=== PATIENT | male | born 1935 | race African-American/Black ===

== ENCOUNTER 2018-07-05 09:36 | Outpatient (CLI) | payer MEDICARE ==
[2018-07-05 10:08] LABS: Basophils # (Auto) 0.1 K/mm3 (0.0-0.1); Basophils % (Auto) 0.9 % (0.0-1.8); Eosinophils % (Auto) 0.2 % (0.0-4.3); Hematocrit 37.8 % (35.5-45.6); Hemoglobin 12.7 gm/dl (11.8-15.2); Lymphocytes # (Auto) 1.6 K/mm3 (1.2-5.4); Lymphocytes % (Auto) 25.3 % (13.4-35.0); Mean Corpuscular HGB Conc 34 % (32-34); Mean Corpuscular Volume 95 fl (84-94); Monocytes # (Auto) 0.4 K/mm3 (0.0-0.8); Monocytes % (Auto) 6.6 % (0.0-7.3); Platelet Count 208 K/mm3 (140-440); Red Blood Count 3.98 M/mm3 (3.65-5.03); Red Cell Distribution Width 13.8 % (13.2-15.2)
[2018-07-05 10:33] LABS: Alanine Aminotransferase 17 units/L (7-56); Albumin 4.5 g/dL (3.9-5); BUN/Creatinine Ratio 23; Blood Urea Nitrogen 18 mg/dL (9-20); Calcium 9.5 mg/dL (8.4-10.2); Chol/HDL Ratio 2.36 %; HDL Cholesterol 61 mg/dL (40-59); Hemolysis Index 40; LDL Cholesterol,Direct 78 mg/dL (50-130)
--- NOTE | 2018-07-05 10:37 | XRay Report ---
ROUTINE CHEST, TWO VIEWS: HISTORY: Acute bronchitis. The trachea, heart, mediastinal contour, lung fong and bony thorax are unremarkable. IMPRESSION: Unremarkable chest x-ray.
== END 2018-07-05 09:37 | disposition home or self-care (01) ==
LOC: XRAY 09:36
PROVIDERS: ATTEND Internal Medicine
DX: J20.9 Acute bronchitis, unspecified (principal); J30.89 Other allergic rhinitis; J45.20 Mild intermittent asthma, uncomplicated; I10 Essential (primary) hypertension; E78.00 Pure hypercholesterolemia, unspecified; E11.9 Type 2 diabetes mellitus without complications
CPT/HCPCS: 36415; 71046; 80053; 80061; 82785; 84436; 84443; 85025

== ENCOUNTER 2021-04-14 20:54 | Observation (INO) | payer MEDICARE ==
--- NOTE | 2021-04-15 00:33 | Event Note ---
ED Screening Note Date of service: 04/15/21 Time: 00:31 ED Screening Note: Per family, patient is an 85-year-old Welsh male with a history of hypertension and [id number] diabetes who presents to the ED for evaluation after he developed acute onset hypotension at home followed by syncope and fall, and hit his head against furniture in the kitchen about 2 hours prior prior to arrival in the ED. Family states that the patient did not hit his head against the concrete on the floor but against furniture in the kitchen with no loss of consciousness. Family states that the patient took his first COVID-19 vaccination injection over 12 hours ago. Family states that the patient has not had any chest pain, shortness of breath, dizziness, change in vision, nausea and vomiting, chills, fever, headache, numbness and tingling or weakness of upper and lower extremities bilaterally. This initial assessment/diagnostic orders/clinical plan/treatment(s) is/are subject to change based on patients health status, clinical progression and re- assessment by fellow clinical providers in the ED. Further treatment and workup at subsequent clinical providers discretion. Patient/guardian urged not to elope from the ED as their condition may be serious if not clinically assessed and managed. Initial orders include: CBC, CMP, EKG, chest x-ray, troponin, CT head without contrast
--- NOTE | 2021-04-15 01:17 | Cat Scan Report ---
CT HEAD WITHOUT CONTRAST INDICATION / CLINICAL INFORMATION: Syncope and fall. TECHNIQUE: All CT scans at this location are performed using CT dose reduction for ALARA by means of automated e xposure control. COMPARISON: None available. FINDINGS: No acute intracranial hemorrhage. Ventricles are normal in size without midline shift or mass effect. Basal ganglia calcifications are seen. Diffuse ethmoid sinus disease. Corpus callosum appear normal. ADDITIONAL FINDINGS: None. IMPRESSION: 1. Extensive calcifications in the basal ganglia bilaterally. No acute intracranial hemorrhage is def initely seen. If there is concern for ischemia MRI follow-up could be performed. Signer Name: Marcin Altman MD Signed: 04/15/2021 1:13 AM Workstation Name: [id number]
--- NOTE | 2021-04-15 01:26 | XRay Report ---
CHEST 1 VIEW 04/15/2021 12:18 AM INDICATION / CLINICAL INFORMATION: low blood pressure, syncope. COMPARISON: None available. FINDINGS: SUPPORT DEVICES: None. HEART / MEDIASTINUM: No significant abnormality. LUNGS / PLEURA: No significant pulmonary or pleural abnormality. No pneumothorax. ADDITIONAL FINDINGS: Minimal elevation left hemidiaphragm IMPRESSION: 1. No acute findings. Signer Name: Marcin Altman MD Signed: 04/15/2021 1:21 AM Workstation Name: [email or web address]
[2021-04-15 01:49] LABS: Basophils % (Auto) 0.5 % (0.0-1.8); Eosinophils # (Auto) 0.1 K/mm3 (0.0-0.4); Eosinophils % (Auto) 1.3 % (0.0-4.3); Hematocrit 33.4 % (35.5-45.6); Lymphocytes # (Auto) 1.6 K/mm3 (1.2-5.4); Lymphocytes % (Auto) 21.3 % (13.4-35.0); Mean Corpuscular HGB Conc 33 % (32-34); Mean Corpuscular Volume 98 fl (84-94); Monocytes # (Auto) 0.7 K/mm3 (0.0-0.8); Monocytes % (Auto) 9.7 % (0.0-7.3); Platelet Count 188 K/mm3 (140-440); Red Blood Count 3.42 M/mm3 (3.65-5.03); Red Cell Distribution Width 13.8 % (13.2-15.2)
[2021-04-15 01:58] LABS: Alanine Aminotransferase 9 units/L (7-56); Albumin 4.4 g/dL (3.9-5); BUN/Creatinine Ratio 20; Blood Urea Nitrogen 32 mg/dL (9-20); Calcium 9.3 mg/dL (8.4-10.2); Hemolysis Index 4
[2021-04-15] MEDS ORDERED: LACTATED RINGERS 1,000 ML IV ONE (03:02)
--- NOTE | 2021-04-15 03:03 | Emergency Department Report ---
ED General Adult HPI - General Chief complaint: Weakness Stated complaint: he fell and is weak and his blood pressure is low Time Seen by Provider: 04/15/21 01:12 Source: patient, family, RN notes reviewed Mode of arrival: Ambulatory Limitations: Language Barrier - History of Present Illness Initial comments: The patient was evaluated in the emergency department for symptoms described in the history of present illness. He/she was evaluated in the context of the global COVID-19 pandemic, which necessitated consideration that the patient might be at risk for infection with the virus that causes COVID-19. Institutional protocols and algorithms that pertain to the evaluation of patients at risk for COVID-19 are in a state of rapid change based on information released by regulatory bodies including the CDC and federal and state organizations. These policies and algorithms were followed during the patient's care in the emergency department. Please note that these policies, procedures and recommendations changed on a rapid basis. The patient is an 85-year-old gentleman. He is accompanied by his son, Mr. Roxie Langford; [phone]. The patient's son indicates that the patient would like the son to translate. The patient has a history of hypertension, BPH, and diabetes. The patient's son states that the patient felt weak recently, and fell. He reports that the patient's legs gave out on him, but he did not hit his head. He reports generalized weakness. The patient's son denies headache, neck pain, chest pain, abdominal pain, shortness of breath, nausea, vomiting or diarrhea. To the best of the son's recollection, the patient has not had any new or different medications started. The patient's son believes that the patient had low blood pressure prior to arrival, as he reports that a prehospital person told him that the blood pressure was low. He does not describe qualitative nature of symptoms except as noted, exacerbatin g factors, relieving factors or aggravating factors. No vomiting, diarrhea, fever, or Covid exposure. -: Sudden Consistency: other Improves with: other Worsens with: other Associated Symptoms: other - Related Data Previous Rx's Medication Instructions Recorded Last Taken Type HYDROcodone/APAP 5-325 [[place] 1 - 2 each PO Q6HR PRN #14 tablet 06/06/16 Unknown Rx 5/325] Sulfamethoxazole/Trimethoprim 1 each PO BID #20 tablet 06/06/16 Unknown Rx [Bactrim DS TAB] Allergies Allergy/AdvReac Type Severity Reaction Status Date / Time No Known Allergies Allergy Verified 04/14/21 23:25 ED Review of Systems ROS: Stated complaint: FELL Other details as noted in HPI Comment: As per fam Constitutional: malaise, weakness Respiratory: denies: cough Cardiovascular: denies: chest pain Gastrointestinal: denies: abdominal pain, hematemesis, melena, hematochezia Genitourinary: denies: dysuria Musculoskeletal: denies: back pain Neurological: weakness Hematological/Lymphatic: denies: easy bleeding ED Past Medical Hx - Past Medical History Additional medical history: eczema - Social History Smoking Status: Never Smoker Substance Use Type: None - Medications Home Medications: Home Medications Medication Instructions Recorded Confirmed Last Taken Type HYDROcodone/APAP 5-325 [[place] 1 - 2 each PO Q6HR PRN #14 tablet 06/06/16 Unknown Rx 5/325] Sulfamethoxazole/Trimethoprim 1 each PO BID #20 tablet 06/06/16 Unknown Rx [Bactrim DS TAB] ED Physical Exam - General Limitations: Language Barrier General appearance: alert, in no apparent distress - Head Head exam: Present: atraumatic, normocephalic - Eye Eye exam: Present: normal appearance, PERRL, EOMI. Absent: nystagmus - ENT ENT exam: Present: normal exam, normal orophraynx, mucous membranes moist, normal external ear exam - Neck Neck exam: Present: normal inspection, full ROM. Absent: tenderness, meningismus - Respiratory Respiratory exam: Present: normal lung sounds bilaterally. Absent: respiratory distress, wheezes, rales, rhonchi, stridor, decreased breath sounds - Cardiovascular Cardiovascular Exam: Present: regular rate, normal rhythm, normal heart sounds. Absent: bradycardia, tachycardia, irregular rhythm, systolic murmur, diastolic murmur, rubs, gallop - GI/Abdominal GI/Abdominal exam: Present: soft. Absent: distended, tenderness, guarding, rebound, rigid, pulsatile mass - Rectal Rectal exam: Present: deferred - Extremities Exam Extremities exam: Present: normal inspection, full ROM, other (2+ pulses noted in the bilateral upper and lower extremities. There is no palpable cord. negative Homans sign. Muscular compartments are soft. The pelvis is stable.). Absent: pedal edema, calf tenderness - Back Exam Back exam: Present: normal inspection. Absent: tenderness, CVA tenderness (R), CVA tenderness (L), paraspinal tenderness, vertebral tenderness - Neurological Exam Neurological exam: Present: alert, other (There is no facial droop. The tongue is midline. EOMI. 5 out of 5 strength in 4 extremities. Sensation intact to light touch in 4 extremities.) - Psychiatric Psychiatric exam: Present: flat affect - Skin Skin exam: Present: warm, dry, intact, normal color. Absent: rash ED Course Vital Signs 04/14/21 04/15/21 04/15/21 23:23 01:34 01:45 Temperature 97.8 F Pulse Rate 86 83 79 Respiratory 19 17 13 Rate Blood Pressure 125/67 O2 Sat by Pulse 99 100 100 Oximetry 04/15/21 04/15/21 04/15/21 02:01 02:31 03:01 Temperature Pulse Rate 78 81 85 Respiratory 12 13 14 Rate Blood Pressure 141/67 133/71 145/73 O2 Sat by Pulse 100 100 100 Oximetry 04/15/21 04/15/21 04/15/21 03:12 03:15 03:31 Temperature 97.1 F L Pulse Rate 78 77 Respiratory 17 14 Rate Blood Pressure 145/73 158/76 O2 Sat by Pulse 100 100 Oximetry ED Medical Decision Making - Lab Data Result diagrams: 04/15/21 00:47 04/15/21 00:47 Vital Signs 04/14/21 23:23 Temperature 97.8 F Pulse Rate 86 Respiratory 19 Rate Blood Pressure 125/67 O2 Sat by Pulse 99 Oximetry Lab Results 04/15/21 04/15/21 Range/Units 00:47 00:47 WBC 7.6 (4.5-11.0) K/mm3 RBC 3.42 L (3.65-5.03) M/mm3 Hgb 11.0 L (11.8-15.2) gm/dl Hct 33.4 L (35.5-45.6) % MCV 98 H (84-94) fl MCH 32 (28-32) pg MCHC 33 (32-34) % RDW 13.8 (13.2-15.2) % Plt Count 188 (140-440) K/mm3 Lymph % (Auto) 21.3 (13.4-35.0) % [place] % (Auto) 9.7 H (0.0-7.3) % Eos % (Auto) 1.3 (0.0-4.3) % Baso % (Auto) 0.5 (0.0-1.8) % Lymph # (Auto) 1.6 (1.2-5.4) K/mm3 [place] # (Auto) 0.7 (0.0-0.8) K/mm3 Eos # (Auto) 0.1 (0.0-0.4) K/mm3 Baso # (Auto) 0.0 (0.0-0.1) K/mm3 Seg Neutrophils % 67.2 (40.0-70.0) % Seg Neutrophils # 5.1 (1.8-7.7) K/mm3 Sodium 128 L (137-145) mmol/L Potassium 5.1 H (3.6-5.0) mmol/L Chloride 93.6 L (98-107) mmol/L Carbon Dioxide 24 (22-30) mmol/L Anion Gap 16 mmol/L BUN 32 H (9-20) mg/dL Creatinine 1.6 H (0.8-1.3) mg/dL Estimated GFR 41 ml/min BUN/Creatinine Ratio 20 % Glucose 150 H (75-100) mg/dL Calcium 9.3 (8.4-10.2) mg/dL Total Bilirubin 0.20 (0.1-1.2) mg/dL AST 14 (5-40) units/L ALT 9 (7-56) units/L Alkaline Phosphatase 54 (35-129) units/L Troponin T < 0.010 (0.00-0.029) ng/mL Total Protein 7.4 (6.3-8.2) g/dL Albumin 4.4 (3.9-5) g/dL Albumin/Globulin Ratio 1.5 % - EKG Data -: EKG Interpreted by Nv EKG shows normal: sinus rhythm Rate: normal - EKG Data When compared to previous EKG there are: previous EKG unavailable 04/15/21 05:02 The EKG is interpreted at 03: 32 Sinus rhythm, rate 77 bpm. Normal axis, normal P wave axis. Right bundle branch block noted. QTC 453 3 ms. Abnormal EKG. Not a STEMI. - Radiology Data Radiology results: pending, report reviewed, image reviewed CT HEAD WITHOUT CONTRAST INDICATION / CLINICAL INFORMATION: Syncope and fall. TECHNIQUE: All CT scans at this location are performed using CT dose reduction for ALARA by means of automated exposure control. COMPARISON: None available. FINDINGS: No acute intracranial hemorrhage. Ventricles are normal in size witho ut midline shift or mass effect. Basal ganglia calcifications are seen. Diffuse ethmoid sinus disease. Corpus callosum appear normal. ADDITIONAL FINDINGS: None. IMPRESSION: 1. Extensive calcifications in the basal ganglia bilaterally. No acute intracranial hemorrhage is definitely seen. If there is concern for ischemia MRI follow-up could be performed. Signer Name: Marcin Altman MD Signed: 04/15/2021 12:13 AM Workstation Name: [id number] CHEST 1 VIEW 04/15/2021 12:18 AM INDICATION / CLINICAL INFORMATION: low blood pressure, syncope. COMPARISON: None available. FINDINGS: SUPPORT DEVICES: None. HEART / MEDIASTINUM: No significant abnormality. LUNGS / PLEURA: No significant pulmonary or pleural abnormality. No pneumothorax. ADDITIONAL FINDINGS: Minimal elevation left hemidiaphragm IMPRESSION: 1. No acute findings. Signer Name: Marcin Altman MD Signed: 04/15/2021 12:21 AM Workstation Name: [id number] - Medical Decision Making Differential diagnosis, including but not limited to: Orthostasis, vagal event, structural cardiac disease, dehydration, renal insufficiency, hyponatremia, hypovolemic hyponatremia, pneumonia, urinary tract infection, thyroid derangement, intracranial lesion/injury Assessment and plan: 85-year-old gentleman, who was afebrile, with reassuring vital signs, moving 4 extremities, and saturating well on room air. He is brought to the hospital by family because of weakness, fall, and report of low blood pressure. Blood pressure acceptable while here in the emergency room. I suspect that the patient is dehydrated, deconditioned, and likely has hypovolemic hyponatremia, as he is found to have hyponatremia, as well as acute renal insufficiency. We have recommended admission to the medical service for urgent echocardiogram to evaluate cardiac contractility, as well as to titrate antihypertensive medications, and administer IV fluids. I discussed this plan of care with the patient's son. He articulated understanding. He was agreeable to the plan of care. Hospital physician, Dr. Irene Arteaga to admit to [facility] Critical care attestation.: If time is entered above; I have spent that time in minutes in the direct care of this critically ill patient, excluding procedure time. ED Disposition Clinical Impression: Hyponatremia, Renal insufficiency, Fall, Debility Disposition: 09 ADMITTED INPATIENT Is pt being admited?: Yes Does the pt Need Aspirin: No Condition: Stable
[2021-04-15] MEDS ORDERED: ACETAMINOPHEN 325 MG TAB PO PRN (03:29)
[2021-04-15] MEDS ORDERED: MAGNESIUM HYDROXIDE (MOM) ORAL LIQD UDC PO PRN (03:29)
[2021-04-15] MEDS ORDERED: ONDANSETRON 4 MG/2 ML INJ IV PRN (03:29)
[2021-04-15] MEDS ORDERED: MORPHINE 2 MG/1 ML INJ IV PRN (03:29)
[2021-04-15] MEDS ORDERED: MORPHINE 4 MG/1 ML INJ IV PRN (03:29)
[2021-04-15] MEDS ORDERED: SODIUM CHLORIDE 0.9% 1000 ML 1,000 ML IV SCH (03:30)
--- NOTE | 2021-04-15 03:48 | History and Physical Report ---
History of Present Illness Date of examination: 04/15/21 Date of admission: 04/15/2021 Chief complaint: Generalized weakness Fall History of present illness: 85-year-old [place]ian male with known history of hypertension, diabetes mellitus and hyperlipidemia brought into the emergency room today accompanied by son with a complaint of fall/syncope and generalized weakness. Patient was evaluated by EMS earlier today and was found to be hypotensive. Son who was by the bedside was able to give most of the history as patient does not speak Greenlandic. Patient was said to have had a fall hitting his head against furniture but there was no head injury and no loss of consciousness. He has been no history of fever or chills, no chest pain or shortness of breath, no nausea vomiting and no diarrhea. No hematuria or dysuria. There has been no sick contacts and no recent travel. No contact with anyone with COVID-19. Patient is fully vaccinated against COVID-19. Upon arrival in the emergency room patient was slightly hypotensive and was given IV fluid with improvement in his blood pressure. Work-up in the emergency room today, CT scan of the head chest x-ray were unremarkable. Labs reveals a creatinine of 1.6 and sodium of 128.. Past History Past Medical History: diabetes, hypertension, hyperlipidemia, other (Eczema) Past Surgical History: No surgical history Social history: no significant social history Family history: no significant family history Medications and Allergies Allergies Allergy/AdvReac Type Severity Reaction Status Date / Time No Known Allergies Allergy Verified 04/14/21 23:25 Home Medications Medication Instructions Recorded Confirmed Last Taken Type HYDROcodone/APAP 5-325 [[place] 1 - 2 each PO Q6HR PRN #14 tablet 06/06/16 Unknow n Rx 5/325] Sulfamethoxazole/Trimethoprim 1 each PO BID #20 tablet 06/06/16 Unknown Rx [Bactrim DS TAB] Active Meds: Active Medications Acetaminophen (Acetaminophen 325 Mg Tab) 650 mg PO Q4H PRN PRN Reason: Pain MILD(1-3)/Fever >100.5/STEVE Heparin Sodium (Porcine) (Heparin 5,000 Unit/1 Ml Vial) 5,000 unit SUB-Q Q8HR HAKEEM Lactated Ringer's (Lactated Ringers) 1,000 mls @ 999 mls/hr IV BOLUS ONE Stop: 04/15/21 04:02 Last Admin: 04/15/21 03:27 Dose: 999 mls/hr Documented by: Sodium Chloride (Nacl 0.9% 1000 Ml) 1,000 mls @ 125 mls/hr IV DIRECT HAKEEM Magnesium Hydroxide (Magnesium Hydroxide (Mom) Oral Liqd Udc) 30 ml PO Q4H PRN PRN Reason: Constipation Morphine Sulfate (Morphine 2 Mg/1 Ml Inj) 2 mg IV Q4H PRN PRN Reason: Pain, Moderate (4-6) Morphine Sulfate (Morphine 4 Mg/1 Ml Inj) 4 mg IV Q4H PRN PRN Reason: Pain , Severe (7-10) Ondansetron HCl (Ondansetron 4 Mg/2 Ml Inj) 4 mg IV Q8H PRN PRN Reason: Nausea And Vomiting Sodium Chloride (Sodium Chloride 0.9% 10 Ml Flush Syringe) 10 ml IV BID HAKEEM Sodium Chloride (Sodium Chloride 0.9% 10 Ml Flush Syringe) 10 ml IV PRN PRN PRN Reason: LINE FLUSH Review of Systems Constitutional: weakness, no fever, no chills Ears, nose, mouth and throat: no nasal congestion, no sore throat Cardiovascular: no chest pain, no palpitations Respiratory: no cough, no shortness of breath Gastrointestinal: no abdominal pain, no nausea, no vomiting, no diarrhea, no constipation Genitourinary Male: no dysuria, no hematuria, no flank pain, no nocturia Musculoskeletal: no neck pain, no low back pain Integumentary: no rash, no pruritis Neurological: other (Fall), no headaches, no confusion Psychiatric: no anxiety, no depression Endocrine: no polyphagia, no polydipsia, no polyuria, no nocturia Exam - Constitutional Vitals: Temp Pulse Resp BP Pulse Ox 97.1 F L 77 14 158/76 100 04/15/21 03:12 04/15/21 03:31 04/15/21 03:31 04/15/21 03:31 04/15/21 03:31 General appearance: Present: no acute distress, well-nourished - EENT Eyes: Present: PERRL, EOM intact. Absent: scleral icterus ENT: hearing intact, clear oral mucosa, dentition normal - Neck Neck: Present: supple, normal ROM - Respiratory Respiratory effort: normal Respiratory: bilateral: CTA - Cardiovascular Rhythm: regular Heart Sounds: Present: S1 & S2. Absent: gallop, systolic murmur, diastolic murmur, rub, click - Extremities Extremities: no ischemia, pulses intact, pulses symmetrical, No edema, normal temperature, Full ROM Peripheral Pulses: within normal limits - Abdominal General gastrointestinal: Present: soft, non-tender, non-distended, normal bowel sounds. Absent: mass - Integumentary Integumentary: Present: clear, warm, dry. Absent: rash - Musculoskeletal Musculoskeletal: strength equal bilaterally - Psychiatric Psychiatric: appropriate mood/affect, intact judgment & insight, memory intact, cooperative - Neurologic Neurologic: CNII-XII intact, no focal deficits, moves all extremities HEART Score - HEART Score Troponin: Troponin T < 0.010 ng/mL (0.00-0.029) 04/15/21 00:47 Results - Labs CBC & Chem 7: 04/15/21 00:47 04/15/21 00:47 Labs: Abnormal lab results 04/15/21 04/15/21 Range/Units 00:47 00:47 RBC 3.42 L (3.65-5.03) M/mm3 Hgb 11.0 L (11.8-15.2) gm/dl Hct 33.4 L (35.5-45.6) % MCV 98 H (84-94) fl [place] % (Auto) 9.7 H (0.0-7.3) % Sodium 128 L (137-145) mmol/L Potassium 5.1 H (3.6-5.0) mmol/L Chloride 93.6 L (98-107) mmol/L BUN 32 H (9-20) mg/dL Creatinine 1.6 H (0.8-1.3) mg/dL Glucose 150 H (75-100) mg/dL Assessment and Plan - Patient Problems (1) Hyponatremia Current Visit: Yes Status: Acute Plan to address problem: We will continue on IV fluid normal saline. Will monitor chemistry. (2) Fall Current Visit: Yes Status: Acute Plan to address problem: Possibly secondary to hypotension. Patient placed on fall precautions. (3) Renal insufficiency Current Visit: Yes Status: Acute Plan to address problem: Patient placed on IV fluid normal saline. Will monitor BUN and creatinine. (4) Diabetes mellitus Current Visit: Yes Status: Acute Plan to address problem: We will monitor Accu-Cheks closely. Patient placed on sliding scale insulin. (5) DVT prophylaxis Current Visit: Yes Status: Acute Plan to address problem: Patient placed on subcutaneous heparin. (6) Full code status Current Visit: Yes Status: Acute Plan to address problem: Patient is full code.
[2021-04-15 03:51] LABS: Bilirubin,Urine NEG (Negative); Blood,Urine NEG (Negative); Color,Urine Colorless (Yellow); Protein,Urine <15 mg/dL mg/dL (Negative); RBC,Urine < 1.0 /HPF (0.0-6.0); Urobilinogen,Urine < 2.0 mg/dL (<2.0); WBC,Urine < 1.0 /HPF (0.0-6.0)
[2021-04-15 04:13] LABS: Creatinine,Urine 32.3 mg/dL (0.1-20.0)
[2021-04-15 04:44] LABS: INR 0.89 (0.87-1.13); Uric Acid 6.8 mg/dL (3.5-7.6)
[2021-04-15] MEDS ORDERED: DEXTROSE 50% IN WATER (25GM) 50 ML SYRINGE IV PRN (04:56)
[2021-04-15] MEDS ORDERED: HEPARIN 5,000 UNIT/1 ML VIAL SUB-Q SCH (06:00)
[2021-04-15] MEDS ORDERED: INSULIN LISPRO 100 UNIT/ML SUB-Q SCH (07:30)
--- NOTE | 2021-04-15 08:23 | Discharge Summary ---
Providers - Providers Date of Admission: 04/15/21 03:29 Date of discharge: 04/15/21 Attending physician: SURJIT HOFFMANN MD 04/15/21 03:52 Consult to Physician [CONS] Routine Comment: Consulting Provider: ZULEIKA LORENZO Physician Instructions: Reason For Exam: CM,HYPONATREMIA Primary care physician: [employer] SERVICE ENGINEER Hospitalization Reason for admission: Fall Condition: Stable Hospital course: History of present illness: 85-year-old French male with known history of hypertension, diabetes mellitus and hyperlipidemia brought into the emergency room today accompanied by son with a complaint of fall/syncope and generalized weakness. Patient was evaluated by EMS earlier today and was found to be hypotensive. Son who was by the bedside was able to give most of the history as patient does not speak Estonian. Patient was said to have had a fall hitting his head against furniture but there was no head injury and no loss of consciousness. He has been no history of fever or chills, no chest pain or shortness of breath, no nausea vomiting and no diarrhea. No hematuria or dysuria. There has been no sick contacts and no recent travel. No contact with anyone with COVID-19. Patient is fully vaccinated against COVID-19. Upon arrival in the emergency room patient was slightly hypotensive and was given IV fluid with improvement in his blood pressure. Work-up in the emergency room today, CT scan of the head chest x-ray were unremarkable. Labs reveals a creatinine of 1.6 and sodium of 128.. Hospital course to date Patient was admitted to fall due to dehydration. Patient was given IV fluids with subsequent improvement in blood pressure. Sodium was noted to be 128 on admission and improved to 132 this hospitalization. Patient appears to have a baseline in this range based on prior admissions.creatinine on admission 1.6, this demonstrated improvement to 1.0. Echo did not reveal any significant findings. Carotid Doppler did not reveal any significant findings. Patient will be discharged home today. He will be advised to follow-up with his primary care physician in 3 to 5 days. Disposition: 01 HOME / SELF CARE / HOMELESS Final Discharge Diagnosis (Prints w/discharge instructions): Fall secondary to dehydration and hypotension Time spent for discharge: 25 - Discharge Diagnoses (1) Debility Status: Acute (2) Diabetes mellitus Status: Acute (3) Fall Status: Acute (4) Hyponatremia Status: Acute (5) Renal insufficiency Status: Acute Core Measure Documentation - Palliative Care Palliative Care/ Comfort Measures: Not Applicable - Core Measures Any of the following diagnoses?: none Exam - Physical Exam Narrative exam: General appearance: Present: no acute distress, well-nourished - EENT Eyes: Present: PERRL, EOM intact. Absent: scleral icterus ENT: hearing intact, clear oral mucosa, dentition normal - Neck Neck: Present: supple, normal ROM - Respiratory Respiratory effort: normal Respiratory: bilateral: CTA - Cardiovascular Rhythm: regular Heart Sounds: Present: S1 & S2. Absent: gallop, systolic murmur, diastolic murmur, rub, click - Extremities Extremities: no ischemia, pulses intact, pulses symmetrical, No edema, normal temperature, Full ROM Peripheral Pulses: within normal limits - Abdominal General gastrointestinal: Present: soft, non-tender, non-distended, normal bowel sounds. Absent: mass - Integumentary Integumentary: Present: clear, warm, dry. Absent: rash - Musculoskeletal Musculoskeletal: strength equal bilaterally - Psychiatric Psychiatric: appropriate mood/affect, intact judgment & insight, memory intact, cooperative - Neurologic Neurologic: CNII-XII intact, no focal deficits, moves all extremities - Constitutional Vitals: Temp Pulse Resp BP Pulse Ox 97.7 F 79 18 165/74 95 04/15/21 05:18 04/15/21 05:18 04/15/21 05:18 04/15/21 05:18 04/15/21 05:21 Plan Activity: advance as tolerated Weight Bearing Status: Weight Bear as Tolerated Diet: low cholesterol, low salt, diabetic Follow up with: PRIMARY CARE, [Primary Care Provider] - 7 Days
--- NOTE | 2021-04-15 08:49 | Consultation ---
History of Present Illness - Reason for Consult Consult date: 04/15/21 acute renal failure Requesting physician: ANYELY CHANG - History of Present Illness 85-year-old M[place]ese male with a history of diabetes mellitus, hypertension and possible chronic kidney disease with baseline kidney function is unknown. Patient fell and hit his head against furniture at home. He had been feeling weak and had a syncopal episode. There was no head injury. Blood pressure was low on evaluation on the field. In the emergency room, blood pressure was back to normal. Patient has not been recently started on any new medications. Labs showed BUN/creatinine elevated at 32/1.6 mg/dL with sodium low at 128 mmol/L and potassium high normal at 5.1 mmol/L. I am consulted to assist with managing kidney injury and electrolyte abnormalities. Past History Past Medical History: diabetes, hypertension, hyperlipidemia, other (Eczema) Past Surgical History: No surgical history Social history: no significant social history Family history: no significant family history Medications and Allergies Allergies Allergy/AdvReac Type Severity Reaction Status Date / Time No Known Allergies Allergy Verified 04/14/21 23:25 Home Medications Medication Instructions Recorded Confirmed Last Taken Type Aspirin [Aspirin BABY CHEW TAB] 81 mg PO QDAY 04/15/21 04/15/21 Unknown History Erythromycin [Erythromycin Ophth 1 inch OU QHS 04/15/21 04/15/21 Unknown History Oint] Finasteride [Proscar] 5 mg PO DAILY 04/15/21 04/15/21 Unknown History Simvastatin 10 mg PO HS 04/15/21 04/15/21 Unknown History Tamsulosin [Flomax] 0.4 mg PO BID 04/15/21 04/15/21 Unknown History cycloSPORINE [Restasis 0.05%] 1 drop OU BID 04/15/21 04/15/21 Unknown History lisinopriL [Lisinopril] 10 mg PO DAILY 04/15/21 04/15/21 Unknown History metFORMIN 850 mg PO TID 04/15/21 04/15/21 Unknown History Active Meds: Active Medications Acetaminophen (Acetaminophen 325 Mg Tab) 650 mg PO Q4H PRN PRN Reason: Pain MILD(1-3)/Fever >100.5/STEVE Dextrose (Dextrose 50% In Water (25gm) 50 Ml Syringe) 50 ml IV Q30MIN PRN; Protocol PRN Reason: Hypoglycemia Heparin Sodium (Porcine) (Heparin 5,000 Unit/1 Ml Vial) 5,000 unit SUB-Q Q8HR HAKEEM Last Admin: 04/15/21 06:46 Dose: Not Given Documented by: Sodium Chloride (Nacl 0.9% 1000 Ml) 1,000 mls @ 125 mls/hr IV DIRECT HAKEEM Last Admin: 04/15/21 06:48 Dose: 125 mls/hr Documented by: Insulin Human Lispro (Insulin Lispro 100 Unit/Ml) 0 unit SUB-Q ACHS HAKEEM; Protocol Magnesium Hydroxide (Magnesium Hydroxide (Mom) Oral Liqd Udc) 30 ml PO Q4H PRN PRN Reason: Constipation Morphine Sulfate (Morphine 2 Mg/1 Ml Inj) 2 mg IV Q4H PRN PRN Reason: Pain, Moderate (4-6) Morphine Sulfate (Morphine 4 Mg/1 Ml Inj) 4 mg IV Q4H PRN PRN Reason: Pain , Severe (7-10) Ondansetron HCl (Ondansetron 4 Mg/2 Ml Inj) 4 mg IV Q8H PRN PRN Reason: Nausea And Vomiting Sodium Chloride (Sodium Chloride 0.9% 10 Ml Flush Syringe) 10 ml IV BID HAKEEM Sodium Chloride (Sodium Chloride 0.9% 10 Ml Flush Syringe) 10 ml IV PRN PRN PRN Reason: LINE FLUSH Review of Systems All systems: negative (As noted in history of present illness) Exam - Vital Signs Vital signs: Vital Signs Temp Pulse Resp BP Pulse Ox 97.8 F 86 19 125/67 99 04/14/21 23:23 04/14/21 23:23 04/14/21 23:23 04/14/21 23:23 04/14/21 23:23 - Physical Exam Narrative exam: Elderly [place] male lying in bed in no acute distress HEENT: NCAT, pink oral mucous membrane Neck: Supple, no venous distention CVS: S1S2 RRR with no murmur, rub or gallop Chest: Clear to auscultation Abdomen: Protuberant, soft, nontender, no organomegaly, bowel sounds are present Extremities: No edema Genitourinary deferred Skin warm and dry Neuro: Awake, alert no focal deficits Results - Lab Results 04/15/21 00:47 04/15/21 12:38 Most recent lab results Calcium 9.3 mg/dL (8.4-10.2) 04/15/21 00:47 Magnesium 1.80 mg/dL (1.7-2.3) 04/15/21 03:56 Urine Creatinine 32.3 mg/dL (0.1-20.0) H 04/15/21 03:17 Urine Sodium 49 mmol/L 04/15/21 03:17 Assessment and Plan - Patient Problems (1) Acute kidney injury (nontraumatic) Status: Acute Plan to address problem: Acute kidney injury probably prerenal azotemia secondary to hypotension. Blood pressure has improved. Follow-up electrolytes and renal function (2) Hypertensive chronic kidney disease with stage 1 through stage 4 chronic kidney disease, or unspecified chronic kidney disease Status: Acute Plan to address problem: Resume home antihypertensive medications on follow-up blood pressure. (3) Hyponatremia Status: Acute Plan to address problem: Hypovolemic hyponatremia. Volume repletion with isotonic saline and and follow- up sodium. (4) Type 2 diabetes mellitus with diabetic chronic kidney disease Status: Acute Plan to address problem: Blood sugar management by primary attending.
--- NOTE | 2021-04-15 12:36 | Vascular Lab Report ---
DUPLEX DOPPLER ULTRASOUND CAROTID, BILATERAL INDICATION / CLINICAL INFORMATION: Syncope. COMPARISON: None available. FINDINGS: RIGHT CAROTID: Minimal calcified atherosclerotic plaque. - PLAQUE ESTIMATE (%): < 50% - CCA velocity: 58 cm/sec. - ICA peak systolic velocity: 85 cm/sec. - ICA/CCA PSV Ratio: Less than 2. Right Vertebral Artery: Antegrade flow. LEFT CAROTID: Minimal calcified atherosclerotic plaque. - PLAQUE ESTIMATE (%): < 50% - CCA velocity: 58 cm/sec. - ICA peak systolic velocity: 82 cm/sec. - ICA/CCA PSV Ratio: Less than 2. Left Vertebral Artery: Antegrade flow. IMPRESSION: 1. Right Internal Carotid Artery: Less than 50% diameter stenosis. 2. Left Internal Carotid Artery: Less than 50% diameter stenosis. Velocity criteria are extrapolated from diameter data as defined by the Society of Radiologists in Ul trasound Consensus Conference, Radiology 2003; 229;340-346. NO STENOSIS (NORMAL) - Plaque = none; ICA PSV < 125 cm/sec; ICA/CCA PSV Ratio < 2.0 <50% STENOSIS - Plaque < 50%; ICA PSV < 125 cm/sec; ICA/CCA PSV Ratio < 2.0 50-69% STENOSIS - Plaque > 50%; ICA PSV = 125-230 cm/sec; ICA/CCA PSV Ratio = 2.0-4.0 >70% BUT <100% STENOSIS - Plaque > 50%; ICA PSV > 230 cm/sec; ICA/CCA PSV Ratio > 4.0 NEAR OCCLUSION - Plaque = visible lumen; ICA PSV = high/low/none; ICA/CCA PSV Ratio = variable TOTAL OCCLUSION - Plaque = no lumen; ICA PSV = none; ICA/CCA PSV Ratio = N/A Scribed by: Phyllis Maldonado RDMS, RVT Scribed: 04/15/2021 10:21 AM I have reviewed the images, agree with this report, and edited this report as needed. Signer Name: Jose Milan MD Signed: 04/15/2021 12:28 PM Workstation Name: [id number]
[2021-04-15 14:26] VITALS: BP 157/91
--- NOTE | 2021-04-15 19:16 | Electrocardiograph Report ---
[facility] Test Date: 2021-04-15 Test Time: 03:32:44 Pat Name: JAY REDDY Department: Room: A374 1 Gender: M Public Health Physician: MITA TURNER : 1935 Requested By: NAYELY CHANG Order Number: [id number] Reading MD: Jailene Addison Measurements Intervals [place] Rate: 77 P: 67 OK: 157 QRS: 82 QRSD: 130 T: 64 QT: 399 QTc: 453 Interpretive Statements Sinus rhythm Right bundle branch block ST elevation suggests early repolarization or acute pericarditis No previous ECG available for comparison Electronically Signed On 04-15-2021 19:16:08 EDT by Jailene Addison
== END 2021-04-15 15:50 | disposition home or self-care (01) ==
LOC: ED 20:54 → 3A 04-15 03:29
PROVIDERS: ADMIT Internal Medicine Geriatric Medicine; ATTEND Internal Medicine
DX: N17.9 Acute kidney failure, unspecified (principal); E87.1 Hypo-osmolality and hyponatremia; N28.9 Disorder of kidney and ureter, unspecified; I12.9 Hypertensive chronic kidney disease with stage 1 through stage 4 chronic kidney disease, or unspecified chronic kidney disease; N18.4 Chronic kidney disease, stage 4 (severe); E78.5 Hyperlipidemia, unspecified; E11.22 Type 2 diabetes mellitus with diabetic chronic kidney disease; R53.81 Other malaise; Z79.82 Long term (current) use of aspirin; Z79.4 Long term (current) use of insulin; W19.XXXA Unspecified fall, initial encounter; Y92.89 Other specified places as the place of occurrence of the external cause; Y93.89 Activity, other specified; Y99.8 Other external cause status
CPT/HCPCS: 36415; 70450; 71045; 80053; 81001; 82550; 82565; 82570; 83735; 83935; 84300; 84443; 84484; 84550; 85025; 85610; 87086; 93005; 93306; 93880; 96360; 96361; G0378; J7030; J7120